=== PATIENT | female | born 1975 | race African-American/Black ===

== ENCOUNTER 2019-05-29 13:44 | Emergency (ER) | payer BC, SELFPAY ==
[2019-05-29 13:58] VITALS: BP 119/73; PULSE 108; RESP 16; TEMP 37.2; O2SAT 98
--- NOTE | 2019-05-29 14:05 | ED.URI ---
HPI - URI/Sore Throat General Chief Complaint: Upper Respiratory Infection Stated Complaint: Cough Time Seen by Provider: 05/29/19 14:05 Source: patient and RN notes reviewed History of Present Illness HPI Narrative: Patient is a 44-year-old female that presents the urgent care with complaints of cough, congestion, fever, bilateral ear popping. Patient states symptoms have been intermittent for the last 2 weeks. Patient states that she had a fever on Monday which subsided Monday. Has been using TheraFlu, Tylenol, emergency and vitamin C supplements. Patient states the cough is nonproductive and denies any wheezing or shortness of breath. No other acute complaints. No acute distress noted. Patient read the plan of care. Related Data Allergies Allergy/AdvReac Type Severity Reaction Status Date / Time Nut Tree Allergy Unknown Uncoded 04/19/17 16:12 Review of Systems Review of Systems: Narrative: CONSTITUTIONAL: Reports a fever and sweats EYES: Denies visual changes, redness, or discharge. ENT: Reports of congestion, postnasal drainage CARDIOVASCULAR: Denies chest pain, palpitations, or edema. RESPIRATORY: Reports of nonproductive cough without dyspnea or wheezing GASTROINTESTINAL: Denies abdominal pain, nausea, vomiting, or diarrhea. GENITOURINARY: Denies dysuria or hematuria. SKIN: Denies rash or itching. MUSCULOSKELETAL: Denies back pain, joint pain, or myalgia. NEUROLOGIC: Denies headache, numbness, or weakness. PMFSH Social History Social History Gender identity (if verbalized by the patient): Female Comments At the time of my signature, I reviewed and agree with the nursing past medical, surgical, social, and family history. There is no relevant family history pertinent to the patient complaint. Exam Narrative: Exam Narrative: GENERAL: This is a well-nourished, well-developed patient, in no apparent distress. HEAD: normocephalic, atraumatic. EYES: PERRL. Sclera clear/white. Vision is grossly intact. EARS: External ears normal, auditory canals clear and without drainage, mild fluid noted pain bilateral TMs. TMs normal without perforation. Hearing grossly intact. NOSE: External nose normal with no obvious nasal discharge, nares without redness, clear rhinorrhea. THROAT: Mucous membranes moist, posterior pharynx clear. Moderate postnasal drainage with mild bilateral tonsillar edema and which patient states is normal for her . NECK: Neck supple, non-tender bilateral mild submandibular lymphadenopathy CARDIOVASCULAR: Regular rate and rhythm without murmurs, gallops, or rubs. RESPIRATORY: Clear to auscultation. Breath sounds equal bilaterally. No wheezes, rales, or rhonchi. SKIN: warm, intact with no suspicious lesions or rash, good texture and turgor. NEURO: awake, alert, and oriented to person, place and time. There were no obvious focal neurologic abnormalities. EXTREMITIES: No clubbing, cyanosis, or edema. Course Vital Signs Vital signs: Vital Signs Temperature 98.9 F 05/29/19 13:58 Pulse Rate 108 H 05/29/19 13:58 Respiratory Rate 16 05/29/19 13:58 Blood Pressure 119/73 05/29/19 13:58 Pulse Oximetry 98 05/29/19 13:58 Temperature 98.9 F 05/29/19 13:58 Pulse Rate 108 H 05/29/19 13:58 Respiratory Rate 16 05/29/19 13:58 Blood Pressure 119/73 05/29/19 13:58 Pulse Oximetry 98 05/29/19 13:58 Reviewed MDM - URI/Sore Throat MDM Narrative Medical decision making narrative: Advised the patient to use fluticasone as prescribed. Complete steroid regimen as prescribed. Use Claritin or Zyrtec [id number] for congestion. Increase fluids and rest. Use humidifier at night. Continue use Tylenol/ibuprofen as needed for fever pain. Follow-up with PCP within 2 to 5 days or for worsening symptoms or failure to improve. Differential Diagnosis Differential diagnosis: Likely upper respiratory infection, otitis media, sinusitis, viral infection, bronchitis, influenza and pharyngitis Criti
== END 2019-05-29 14:18 | disposition home or self-care (01) ==
PROVIDERS: Emergency Provider Nurse Practitioner Family
DX: J32.9 Chronic sinusitis, unspecified (principal)
CPT/HCPCS: 99213; G0463

== ENCOUNTER 2019-05-31 17:56 | Emergency (ER) | payer BC, SELFPAY ==
[2019-05-31 18:05] VITALS: BP 135/92; PULSE 82; RESP 18; TEMP 36; O2SAT 100
--- NOTE | 2019-05-31 18:14 | ED.GENADULT ---
HPI - General Adult General Chief complaint: Skin/Abscess/Foreign Body Stated complaint: Eye Pain Source: patient and RN notes reviewed Mode of arrival: ambulatory Limitations: no limitations History of Present Illness HPI narrative: This is a 44 years old female presents to the office for an evaluations of skin lesion below her right eye since yesterdays.Patient stated that she was here about 2 days ago for her cold symptoms, the provider prescribed her prednisone which has helped with her sinus pain and pressure however her cough is lingering. Then she noticed a cold sore on her lips which has spread to her nose and below her eye. Denies visual changes or blurry.She does wear glasses. Admits to history of canker sore in the past however it has not been this bad.Denies sick contact.She never have to take antiviral in the past for her canker sore. Related Data Allergies Allergy/AdvReac Type Severity Reaction Status Date / Time Nut Tree Allergy Unknown Unknown Uncoded 05/31/19 18:08 Review of Systems Review of Systems: Narrative: CONSTITUTIONAL: Reports fever at beginning of her symptoms; but not the last few days EYES: Denies visual changes, redness, discharge. ENT: Denies congestion, otalgia. CARDIOVASCULAR: Denies chest pain, palpitations RESPIRATORY:Reports cough and wheezing at times GASTROINTESTINAL: Denies abdominal pain, nausea, vomiting, diarrhea. GENITOURINARY: Denies urinary symptoms or discharge SKIN: Denies rash MUSCULOSKELETAL: Denies acute back pain, joint pain, or myalgia. NEUROLOGIC: Denies numbness, or focal weakness. PMFSH Social History Social History Gender identity (if verbalized by the patient): Female Comments At time of signature, I agree with nursing past medical, surgical, social and family history. There is no relevant family history pertinent to the presenting complaint. Exam Narrative: Exam Narrative: GENERAL: This is a well-nourished, well-developed patient, in no apparent distress. EYES: PERRL. EMOI. Sclera clear/white. Vision is grossly intact. EARS: External ears normal, auditory canals clear and without drainage, TMs normal without perforation. Hearing grossly intact. NOSE: External nose normal with no obvious nasal discharge, nares without redness, no rhinorrhea. THROAT: Mucous membranes moist, posterior pharynx clear. NECK: Neck supple, non-tender without lymphadenopathy, masses or thyromegaly. CARDIOVASCULAR: Regular rate and rhythm without murmurs, gallops, or rubs. RESPIRATORY: clear to ascultation except in the right lower lobe noted expiratory; but clear with cough. Breath sounds equal bilaterally.Occasional nonproductive cough noted during examination. GASTROINTESTINAL: Abdomen soft, non-tender, nondistended. Bowel sounds are active. No hepato-splenomegaly, or palpable masses. No guarding. NEURO: awake, alert, and oriented to person, place and time. There were no obvious focal neurologic abnormalities. Steady gait [place] Coma Scale Eye Opening: Spontaneous 4 [place] Coma Scale Motor: Obeys Commands 6 [place] Coma Scale Verbal: Oriented 5 HENMT: Head images: 1. group vesicular erythema lesions 2. group vesicular lesions Eyes: Eyes/upper lids images: 1. group vesicular lesions Course Vital Signs Vital signs: Vital Signs Temperature 96.8 F L 05/31/19 18:05 Pulse Rate 82 05/31/19 18:05 Respiratory Rate 18 05/31/19 18:05 Blood Pressure 135/92 H 05/31/19 18:05 Pulse Oximetry 100 05/31/19 18:05 Temperature 96.8 F L 05/31/19 18:05 Pulse Rate 82 05/31/19 18:05 Respiratory Rate 18 05/31/19 18:05 Blood Pressure 135/92 H 05/31/19 18:05 Pulse Oximetry 100 05/31/19 18:05 Medical Decision Making MDM Narrative Medical decision making narrative: Discharge instructions reviewed with patient, as well as provided in writing per nursing staff. The instructions also include specific and st
== END 2019-05-31 18:40 | disposition home or self-care (01) ==
PROVIDERS: Emergency Provider Nurse Practitioner
DX: K12.0 Recurrent oral aphthae (principal); J06.9 Acute upper respiratory infection, unspecified; R05 Cough; R03.0 Elevated blood-pressure reading, without diagnosis of hypertension
CPT/HCPCS: 99213; G0463

== ENCOUNTER 2022-11-28 01:44 | Day surgery (SDC) | payer OTHER, SELFPAY ==
[2022-11-21 14:56] VITALS: BMI 48.2
--- NOTE | 2022-11-21 14:59 | SUR.PREOP ---
Report to the Outpatient Waiting Room, entrance under the green pavilion located off [facility], at time _0815 on date _11/28/22 . Planned Procedure Time: _1015 . Time changes happen often and if your time is changed the preop area will call you the afternoon before. - You and your visitor will be asked to self-screen and do not enter if you have any COVID symptoms. - A mask is optional within the hospital at this time. Patients may have clear liquids (water, carbonated beverages, clear teas, apple juice) until 3 hours prior to surgery with a maximum of 20 ounces. - No food from midnight until time of surgery - Infants may have breast milk until 4 hours before surgery, infant formula 6 hours prior to surgery. - Children will be allowed to drink immediately following surgery. If applicable, please bring a bottle or sippy cup to assist with drinking. Juice, water, soda, and popsicles are readily available. For infants on formula, please bring formula the day of surgery. Pacifiers are allowed. Take the following medications with a SIP of water the morning of surgery: ___n/a DO NOT STOP ANY OF YOUR OTHER PRESCRIPTION MEDICATIONS PRIOR TO SURGERY ?EXCEPT THE FOLLOWING Medications to discontinue per physician vitamin Date to take last dose__11/25/22 Please no make-up, nail italian, hairspray, perfume, deodorant, or body powder the day of surgery. No jewelry (including any body piercings) or valuables the day of surgery, leave them at home. Please take a shower or bath the night before, or the morning of, surgery with an antibacterial soap. Wear comfortable, loose fitting clothing. Children are encouraged to wear pajamas. - Jewelry must be removed prior to entering the operating room. Rings and piercings that are not removed may be cut off. - The hospital will not accept responsibility for valuables. - Please leave all valuables, including medications, at home the day of surgery. If you are going home after surgery, a licensed class a regional drivers must drive you home. - NO public transportation without another adult if you receive anesthesia. - We recommend that an adult stay with you for 24 hours following discharge. - We also recommend that you do not drive, make important decision, drink alcoholic beverages, or take any drugs that were not prescribed by your health care provider for at least 24 hours after your discharge time. For Pediatric surgeries, we recommend two adults accompany the child home. Follow any additional instructions given to you from your surgeon. If you or anyone in your household have experienced Covid symptoms in the past week, please notify your surgeon or the nurse liaison at the phone number below for possible testing. Telephone instructions given to _cass alvarez and asked if any additional questions and then verbalized understanding. Patient advised to call surgeon office or pre surgery nurse liaison [phone] if any additional questions.
--- NOTE | 2022-11-28 07:44 | WPDHPUPDATE1 ---
History and Physical Update Update Date/Time: 11/28/22 07:44 History and Physical has been reviewed, including an updated exam of the patient. There are NO changes in the patient's condition. Risks, benefits, and alternatives have been discussed and questions answered. Patient agrees to proceed with procedure.
--- NOTE | 2022-11-28 07:44 | PM.HPGS ---
History of Present Illness History of Present Illness Consent: Risks, benefits, and alternatives have been discussed and questions answered. Patient agrees to proceed with procedure. Chief complaint: menorrhagia with anemia and hpv Narrative: Kaylee Yeboah is a 47 year old female with changing cycles over the past 6 months. Cycles have become closer to gather with increased cramping and flow. Labs revealed hemoglobin of 9.3. It was therefore recommended to proceed with D&C hysteroscopy to evaluate. It was also recommended the patient see GI for colonoscopy. Patient's Pap smear was also abnormal the time her annual exam in September. The Pap smear revealed positive high-risk HPV with normal cytology. It was therefore recommended the patient undergo colposcopy. Patient wished to proceed with both procedures at the same time under anesthesia. Risks of infection, bleeding, and perforation were reviewed. Possible pathology was also discussed. Patient voices understanding and agrees to proceed. Review of Systems Review of Systems: not repeated day of surgery; patient states no changes in status PMFSH Past Medical History Medical History (Updated 11/28/22 @ 07:49 by Louisa Ochoa MD) No significant medical problems Surgical History Surgical History (Updated 11/28/22 @ 07:47 by Louisa Ochoa MD) No significant past surgical history Social History Social History Smoking status: Never smoker Drinks per week: 1 Alcohol use details: occasionally Living arrangements: with family Gender identity (if verbalized by the patient): Female Spiritual care concerns: No Meds Home Medications and Allergies Home Medications Medication Instructions Recorded Confirmed Type ferrous sulfate 134 mg (27 mg 134 mg PO DAILY 11/21/22 11/21/22 History iron) tablet levocetirizine 5 mg tablet 5 mg PO DAILY 11/21/22 11/21/22 History multivitamin 1 cap PO DAILY 11/21/22 11/21/22 History Allergies Allergy/AdvReac Type Severity Reaction Status Date / Time Nut Tree Allergy Intermediate Itching Uncoded 11/21/22 14:33 Exam Const: General: obese ( BMI of 51) Orientation/consciousness: patient oriented x3 Resp: Effort & Inspection: normal respiratory effort GI: GI Palp: Yes Soft to palpation, No Tenderness to palpation present (GI) and No Palpable mass present : External Female Exam: normal external appearance Speculum Exam - Vagina: normal appearance of the vagina and normal vaginal discharge Speculum Exam - Cervix: normal appearance of the cervix Bimanual exam- vagina & uterus: uterine size normal and consistency normal Bimanual Exam- Adnexa, other: normal adnexae and No adnexal tenderness Neuro: General: patient oriented x3 Assessment and Plan Assessment and plan (1) Menorrhagia: Code(s): N92.0 - Excessive and frequent menstruation with regular cycle Status: Acute Assessment and Plan: plan to proceed with D&C hysteroscopy (2) HPV test positive: Status: Acute Assessment and Plan: plan to proceed with colposcopy
[2022-11-28 07:59] VITALS: BP 119/73; PULSE 83; RESP 18; TEMP 36.3; O2SAT 100
--- NOTE | 2022-11-28 08:11 | P.PNAN_ITS ---
Anes - Initial Pre Proc Eval Procedure: Operation Date: 11/28/22 10:15 Proposed Procedures p Hysteroscopy Dilation and Curettage with Colposcopy, Endocervical Curettage - Louisa Ochoa MD Date/Time: 11/28/22 08:11 Surgeon: Louisa Ochoa MD Pre Op Diagnosis: menorrhagia with anemia and hpv Patient Data Age: 47 Gender: F Height: 1.73 m Weight: 145 kg Allergies Allergy/AdvReac Type Severity Reaction Status Date / Time Nut Tree Allergy Intermediate Itching Uncoded 11/21/22 14:33 Home Medications Medication Instructions Recorded Confirmed Type ferrous sulfate 134 mg (27 mg 134 mg PO DAILY 11/21/22 11/21/22 History iron) tablet levocetirizine 5 mg tablet 5 mg PO DAILY 11/21/22 11/21/22 History multivitamin 1 cap PO DAILY 11/21/22 11/21/22 History Patient hx anesthesia problems: none Family hx anesthesia problems: none Results Review: All pre-operative results and documents have been reviewed as part of the pre- operative evaluation. PMFSH Past Medical History Medical History (Updated 11/28/22 @ 09:02 by Jame Bautista DO) Anemia Anxiety Surgical History Surgical History (Updated 11/28/22 @ 07:47 by Louisa Ochoa MD) No significant past surgical history Social History Social History Smoking status: Never smoker Drinks per week: 1 Alcohol use details: occasionally Living arrangements: with family Gender identity (if verbalized by the patient): Female Spiritual care concerns: No Anes - Eval Final PreProcedure Day of Procedure 11/28/22 08:11 Patient weight: morbidly obese Heart: regular rate and rhythm Lungs: clear to auscultation Airway: Mallampati scale class II Neurological: alert and oriented Last oral intake: >/= 8 hours ASA classification: III Emergent: no Anesthetic plan: proceed Anesthesia type and monitoring: general GIVS and LMA and standard monitoring Results Review: All pre-operative results and documents have been reviewed as part of the pre-op erative evaluation. Informed Consent: The patient's anesthetic plan and its attendant risks and benefits were discussed with the patient/family/POA. Questions were solicited and answers provided to the satisfaction of the patient/family/POA.
[2022-11-28] MEDS: ACETAMINOPHEN 500 MG TABLET 1000 MG PO (08:35)
[2022-11-28] MEDS: LACTATED RINGERS 1,000 ML 30 ML IV CONT (08:57)
[2022-11-28 11:52] VITALS: BP 112/77; PULSE 81; RESP 16; O2SAT 97
--- NOTE | 2022-11-28 11:52 | W.PM.PROC2 ---
Procedure Note - Detailed Date of Procedure 11/28/22 Pre-op Diagnosis menorrhagia with anemia and hpv Post-op Diagnosis Same Procedure Performed D&C hysteroscopy with partial myomectomy colposcopy with biopsy at 1:00 and endocervical curettings Surgeon Louisa Ochoa MD Anesthesia MAC ( with LMA) Findings colposcopic findings show acetowhite epithelium at 1:00 hysteroscopic findings show multiple fibroids the uterus sounds to 10cm Description of Procedure The patient is taken to the operating room and placed under anesthesia in the dorsal lithotomy position. On my arrival to the operating room I had to request ascetic acid, microscope, and punch biopsy. Once materials had been obtained the bivalve speculum was placed in the vagina and the cervix bathed with ascetic acid. The microscope was used to evaluate the cervix. Abnormalities were noted at 1:00 and a punch biopsy was taken of this area. A tenaculum was then applied to the anterior lip. Endocervical curettings were taken. The uterus was then sounded to 10cm. The diagnostic hysteroscope was placed with the above-stated findings the medium-sized resection device was placed. The upper fibroid to the right was very calcified and difficult to remove and decision was made to work on the posterior fibroid. Approximately a 3rd of the posterior fibroid was removed prior to fluid imbalance of 1L. The hysteroscope was removed and the sharp curette used to curette the endometrium with minimal material obtained. The cervix was serially dilated to an 8 Hegar. The myoma graspers were used to remove pieces of fibroid until no further pieces were able to be grasped with the myoma grasper. Overall approximately a 3rd of the fibroid volume and the endometrial cavity was probably removed. Monsel's was applied to the cervical biopsy and all other instruments were removed from the vagina. Patient was taken to recovery in stable condition. Sponge, needle, and instrument counts are correct per the OR staff. Estimated Blood Loss 100 Drains No Packing No Pathology Yes ( Endometrial curettings, shavings, pieces; cervical biopsy at 1:00; endocervical curettings) Complications No immediate complications Condition Stable Disposition PACU
[2022-11-28 12:15] VITALS: BP 130/82; PULSE 76; RESP 16; O2SAT 100
[2022-11-28 12:45] VITALS: BP 132/89; PULSE 58; RESP 16
== END 2022-11-28 13:12 | disposition home or self-care (01) ==
PROVIDERS: Visit Provider Obstetrics & Gynecology Gynecology
PROC: 0U5B8ZZ Destruction of Endometrium, Via Natural or Artificial Opening Endoscopic (ICD-10-PCS; CPT 58563; principal; 2022-11-28 10:15)
DX: N92.0 Excessive and frequent menstruation with regular cycle (principal); N87.0 Mild cervical dysplasia; D25.9 Leiomyoma of uterus, unspecified; D64.9 Anemia, unspecified; R87.810 Cervical high risk human papillomavirus (HPV) DNA test positive; E66.01 Morbid (severe) obesity due to excess calories; Z68.42 Body mass index [BMI] 45.0-49.9, adult
CPT/HCPCS: 58561; 57454; 88305; A9270; J2250; J2405; J2704; J3010; J7120

== ENCOUNTER 2022-12-02 19:55 | Emergency (ER) | payer OTHER, SELFPAY ==
[2022-12-02] VITALS (11 sets, daily range): BP systolic 116–139; BP diastolic 76–79; PULSE 80–107; RESP 10–24; TEMP 36.6; O2SAT 96–100
[2022-12-02 20:34] LABS: Basophils Percent Auto 0.3 % (0.2-1.2); Eosinophils Percent Auto 0.3 % (0-4.4); Hematocrit 37.9 % (37.0-47.0); Hemoglobin 11.6 g/dL (12.0-15.0); Immature Granulocyte Absolute 0.06 K/mm3 (0.00-0.031); Immature Granulocyte Percent A 0.4 % (0-0.5); Immature Platelet Fraction Pct 5.2 % (0.9-11.2); Lymphocytes Absolute Auto 1.41 K/mm3 (0.9-3.2); Lymphocytes Percent Auto 10.1 % (18.3-44.2); Mean Corpuscular HGB Conc 30.6 g/dl (32-36); Mean Corpuscular Hemoglobin 21.6 pg (26-34); Mean Corpuscular Volume 70.7 fl (80-100); Monocytes Absolute Auto 1.2 K/mm3 (0.1-0.6); Monocytes Percent Auto 8.9 % (2.6-8.5); Neutrophils Absolute Auto 11.2 K/mm3 (1.3-6.7); Platelet Count Result 362 k/mm3 (150-375); Red Blood Count 5.36 M/mm3 (4.2-5.4); Red Cell Distribution Width 26.8 % (11.5-14.5)
[2022-12-02 20:52] LABS: Anion Gap 11 mmol/L (8-16); Blood Urea Nitrogen 7 mg/dL (7-17); Calcium 8.9 mg/dL (8.4-10.2); Carbon Dioxide 22 mmol/L (22-30); Chloride 100 mmol/L (98-107); Estimated CRCL calculation 150 ml/min; Estimated Glomerular Filt Rate > 60; Glucose 119 mg/dL (65-110); Potassium 3.8 mmol/L (3.4-5.0); Sodium 133 mmol/L (137-145)
[2022-12-02 21:05] LABS: Anisocytosis 1+ (NORMAL); Platelet Estimate Adequate (Adequate); Poikilocytosis 1+ (NORMAL)
[2022-12-02 21:06] LABS: Schistocytes None Seen (NORMAL)
--- NOTE | 2022-12-02 21:08 | ED.FEMALEGU ---
HPI - Female Genitourinary General Chief complaint: Vaginal Bleeding Stated complaint: vaginal bleeding s/p post op procedure Time Seen by Provider: 12/02/22 20:01 History of Present Illness HPI Narrative: 47-year-old female presents here with vaginal bleeding status post colposcopy a few days ago, she states at the time she had had some cramping and light spotting but about 15 minutes prior to presentation here she had quickly soaked a pad in about 15 minutes and was extremely anxious she does have a history of anemia, she was also having bad cramping pain which she took ibuprofen for with improvement in her symptoms. Related Data Home Medications Medication Instructions Recorded Confirmed ferrous sulfate 134 mg (27 mg 134 mg PO DAILY 11/21/22 11/21/22 iron) tablet levocetirizine 5 mg tablet 5 mg PO DAILY 11/21/22 11/21/22 multivitamin 1 cap PO DAILY 11/21/22 11/21/22 Allergies Allergy/AdvReac Type Severity Reaction Status Date / Time Nut Tree Allergy Intermediate Itching Uncoded 12/02/22 20:04 Review of Systems Review of Systems: CONST: No fever. HEENT: No sore throat C/V: No chest pain RESP: No cough GI: Lower abdominal cramps : Vaginal bleeding M/S: No joint pain. SKIN: No rash. NEURO: [No headache or focal numbness or weakness] PSYCH: [No depression] [facility] Past Medical History Medical History (Updated 12/02/22 @ 21:10 by Elizabeth Hernandez MD) Anemia Anxiety Surgical History Surgical History (Updated 11/28/22 @ 07:47 by Louisa Ochoa MD) No significant past surgical history Social History Social History Smoking status: Never smoker Drinks per week: 1 Alcohol use details: occasionally Living arrangements: with family Gender identity (if verbalized by the patient): Female Spiritual care concerns: No Exam Narrative: EXAMINATION OF ORGAN SYSTEMS/BODY AREAS: Constitutional: Vital signs per nursing GENERAL:[No acute distress, non-toxic appearing.] HEAD: Normal with no signs of head trauma. EYES: EOMI, conjunctiva normal ENT: Hearing grossly intact LUNGS: Nonlabored breathing. HEART: [Regular rate and rhythm] ABD: [Soft], [nontender to palpation] : No cervical motion or adnexal tenderness; minimal blood in vault without heavy acute hemorrhage EXT: Normal range of motion SKIN: [No rashes or lesions.] NEURO: [Alert and oriented x 3. No gross focal sensory or strength deficits.] PSYCH: Normal affect Course Vital Signs Vital signs: Vital Signs Temperature 97.9 F 12/02/22 20:00 Pulse Rate 107 H 12/02/22 20:00 Respiratory Rate 22 H 12/02/22 20:00 Blood Pressure 139/79 12/02/22 20:00 Pulse Oximetry 99 12/02/22 20:00 Oxygen Delivery Room Air 12/02/22 20:00 Temperature 97.9 F 12/02/22 20:00 Pulse Rate 107 H 12/02/22 20:00 Respiratory Rate 22 H 12/02/22 20:00 Blood Pressure 139/79 12/02/22 20:00 Pulse Oximetry 99 12/02/22 20:00 Oxygen Delivery Room Air 12/02/22 20:00 MDM - Female Genitourinary MDM Narrative Medical decision making narrative: 47-year-old female presenting with heavy vaginal bleeding and cramping several days after her colposcopy, vital signs initially tachycardic and she was appearing anxious initially, my concern is for infection versus postop bleeding amongst other ddx. Exam did not show any heavy hemorrhage, only some scant bleeding, no purulent discharge, and no cervical motion or adnexal tenderness. Labs notable only for mildly elevated white count, hemoglobin stable at 11.6. Findings discussed with her. After 1.5 hrs here on re-eval she is resting comfortably, HR now 86 on telemetry RRR and no resuming of heavy bleeding. She does feel ready and safe to go home with strict precautions discussed in person and on paper and follow up provided. Lab Data 12/02/22 20:27 12/02/22 20:27 Labs: Lab Results 12/02/22
== END 2022-12-02 21:40 | disposition home or self-care (01) ==
PROVIDERS: Emergency Provider Emergency Medicine
DX: N93.9 Abnormal uterine and vaginal bleeding, unspecified (principal); D64.9 Anemia, unspecified; Z98.890 Other specified postprocedural states
CPT/HCPCS: 36415; 80048; 81025; 85025; 85055; 99283